=== PATIENT | male | born 1970 | race Caucasian/White ===

== ENCOUNTER 2017-02-04 01:55 | Emergency (ER) | payer SELFPAY ==
[2017-02-04] MEDS ORDERED: Sodium Chloride 0.9% 10 ML Syringe FLUSH PRN (02:24)
[2017-02-04] MEDS ORDERED: Sodium Chloride 0.9% 2.5 ML Syringe FLUSH PRN (02:24)
[2017-02-04] MEDS ORDERED: Ondansetron 4 MG/2 ML SDV IVPUSH ONE (02:25)
[2017-02-04] MEDS ORDERED: Sodium Chloride 0.9% 1,000 ML IV ONE (02:25)
[2017-02-04] MEDS ORDERED: HYDROmorphone 2 MG/ML Syringe IVPUSH ONE (02:25)
--- NOTE | 2017-02-04 02:28 | EDM.PDOC ---
ED HPI GENERAL MEDICAL PROBLEM - General Chief Complaint: Abdominal Pain Stated Complaint: ABDOMINAL PAIN Time Seen by Provider: 02/04/17 02:18 - History of Present Illness INITIAL COMMENTS - FREE TEXT/NARRATIVE: HISTORY AND PHYSICAL: History of present illness: The patient is a 46-year-old male who presents with a history of kidney stones many years ago and states that he had sudden onset of left upper left lower abdominal pain as well as lower back pain radiating to his testicle. says he is not intractable vomiting since the pain started and has not taken anything for the pain. He has not had fevers chills chest pain or shortness of breath and denies any trauma to the areas. He denies intent any testicular swelling says the pain is shooting around and radiates down to his testicle. He states he had a normal bowel movement earlier today which was not black or bloody and it is not diarrhea. He ate normally today. The patient also states that he is having burning with urination and he is going more frequently this evening and he feels that he cannot completely get the urine out. He has never had issues with his prostate or bladder. Review of systems: As per history of present illness and below otherwise all systems reviewed and negative. Past medical history: As per history of present illness and as reviewed below otherwise noncontributory. Surgical history: As per history of present illness and as reviewed below otherwise noncontributory. Social history: No reported history of drug or alcohol abuse. Family history: As per history of present illness and as reviewed below otherwise noncontributory. Physical exam: Gen.: Well-developed overweight male who is nontoxic and looks uncomfortable in the room. HEENT: Atraumatic, normocephalic, pupils reactive, negative for conjunctival pallor or scleral icterus, mucous membranes moist, throat clear, neck supple, nontender, trachea midline. Lungs: Clear to auscultation, breath sounds equal bilaterally, chest nontender. Heart: S1S2, regular, negative for clicks, rubs, or JVD. Abdomen: Soft, nondistended, diffusely tender throughout the lower abdomen worse on the left side without involuntary guarding or rebound but there is some voluntary guarding. Bowel sounds are hypoactive. Negative for masses or hepatosplenomegaly. Negative for costovertebral tenderness. Pelvis: Stable nontender. Genitourinary: Testicles are descended bilaterally and is no evidence of any testicular swelling or gross tenderness. Rectal: Deferred. Extremities: Atraumatic, negative for cords or calf pain. Neurovascular unremarkable. Neuro: Awake, alert, oriented. Cranial nerves II through XII unremarkable. Cerebellum unremarkable. Motor and sensory unremarkable throughout. Exam nonfocal. Diagnostics: Bladder scan CBC CMP amylase lipase UA urine culture CT scan of the abdomen and pelvis Therapeutics: IV fluids Dilaudid Zofran fentanyl Bladder scan reveals only 110 mL of urine. Patient states that the dilaudid did not help him so I will give him a dose of fentanyl. He also is having retching and dry heaving despite the Zofran so we will try Reglan and Benadryl. Patient and at bedside are aware of testing results and CAT scan findings. He is currently very comfortable without any pain nausea or vomiting. I told that we will send him home with her cassette Zofran urine strainers and Toradol as well as some Cipro to the bacteria in the urine. We will also send him home with Flomax. I strongly encouraged close follow-up with urology in his clinic and reasons to return to the ED. Impression: Left ureterolithiasis Definitive disposition and diagnosis as appropriate pending reevaluation and review of above. Left Upper Abdomen Pain Score (Numeric/FACES): 10 - Related Data Allergies Allergy/AdvReac Type Severity Reaction Status Date / Time No Known Allergies Allergy Verified 02/04/17 02:15 Home Meds: Home Meds . [No Known Home Meds] 02/04/17 [History] Past Medical History Gastrointestinal History: Reports: None Genitourinary History: Reports: Renal Calculus Musculoskeletal History: Reports: None - Past Surgical History GI Surgical History: Reports: Cholecystectomy Musculoskeletal Surgical History: Reports: Knee Replacement, Shoulder Surgery Social & Family History - Family History Family Medical History: Noncontributory - Tobacco Use Smoking Status *Q: Never Smoker Second Hand Smoke Exposure: No - Caffeine Use Caffeine Use: Reports: None - Recreational Drug Use Recreational Drug Use: No ED ROS GENERAL - Review of Systems Review Of Systems: ROS reveals no pertinent complaints other than HPI. ED EXAM, GENERAL - Physical Exam Exam: See Below (see dictation) Course - Vital Signs Last Recorded V/S: Last Vital Signs Temp 36.7 C 02/04/17 03:43 Pulse 69 02/04/17 03:43 Resp 16 02/04/17 03:43 BP 129/80 02/04/17 03:43 Pulse Ox 95 02/04/17 03:43 - Orders/Labs/Meds Orders: Active Orders 24 hr Category Date Time Status Abdomen Pelvis wo Cont [CT] Stat Exams 02/04/17 02:24 Taken CULTURE URINE [RM] Stat Lab 02/04/17 02:15 Received Sodium Chloride 0.9% [Saline Flush] Med 02/04/17 02:24 Active 10 ml FLUSH ASDIRECTED PRN Sodium Chloride 0.9% [Saline Flush] Med 02/04/17 02:24 Active 2.5 ml FLUSH ASDIRECTED PRN Saline Lock Insert [OM.PC] Stat Oth 02/04/17 02:23 Ordered Medication Orders Sodium Chloride (Saline Flush) 10 ml FLUSH ASDIRECTED PRN PRN Reason: Keep Vein Open Sodium Chloride (Saline Flush) 2.5 ml FLUSH ASDIRECTED PRN PRN Reason: Keep Vein Open Labs: Laboratory Tests 02/04/17 02/04/17 02/04/17 Range/Units 02:15 02:45 02:45 WBC 13.55 H (4.0-11.0) K/uL RBC 5.23 (4.50-5.90) M/uL Hgb 14.7 (13.0-17.0) g/dL Hct 43.6 (38.0-50.0) % MCV 83.4 (80.0-98.0) fL MCH 28.1 (27.0-32.0) pg MCHC 33.7 (31.0-37.0) g/dL RDW Std Deviation 38.5 (28.0-62.0) fl RDW Coeff of Telly 13 (11.0-15.0) % Plt Count 216 (150-400) K/uL MPV 10.60 (7.40-12.00) fL Neut % (Auto) 85.7 H (48.0-80.0) % Lymph % (Auto) 8.4 L (16.0-40.0) % Love % (Auto) 5.7 (0.0-15.0) % Eos % (Auto) 0.1 (0.0-7.0) % Baso % (Auto) 0.1 (0.0-1.5) % Neut # (Auto) 11.6 H (1.4-5.7) K/uL Lymph # (Auto) 1.1 (0.6-2.4) K/uL Love # (Auto) 0.8 (0.0-0.8) K/uL Eos # (Auto) 0.0 (0.0-0.7) K/uL Baso # (Auto) 0.0 (0.0-0.1) K/uL Nucleated RBC % 0.0 /100WBC Nucleated RBCs # 0 K/uL Sodium 143 (136-146) mmol/L Potassium 3.3 L (3.5-5.1) mmol/L Chloride 105 (98-110) mmol/L Carbon Dioxide 26 (21-31) mmol/L BUN 19 (6.0-23.0) mg/dL Creatinine 1.7 H (0.6-1.5) mg/dL Est Cr Clr Drug Dosing 58.44 mL/min Estimated GFR (MDRD) 43.8 ml/min Glucose 128 H (60-110) mg/dL Calcium 10.2 (8.8-10.8) mg/dL Total Bilirubin 0.7 (0.1-1.5) mg/dL AST 20 (5-40) IU/L ALT 25 (8-54) IU/L Alkaline Phosphatase 81 (40-150) Total Protein 8.0 (6.0-8.0) g/dL Albumin 4.7 (3.5-5.0) g/dL Globulin 3.3 (2.0-3.5) g/dL Albumin/Globulin Ratio 1.4 (1.3-2.8) Amylase 46 (10-90) U/L Lipase 31 (7-80) U/L Urine Color YELLOW Urine Appearance CLEAR Urine pH 8.5 H (5.0-8.0) Ur Specific [place] 1.015 (1.001-1.035) Urine Protein NEGATIVE (NEGATIVE) mg/dL Urine Glucose (UA) NEGATIVE (NEGATIVE) mg/dL Urine Ketones 15 H (NEGATIVE) mg/dL Urine Occult Blood NEGATIVE (NEGATIVE) Urine Nitrite NEGATIVE (NEGATIVE) Urine Bilirubin NEGATIVE (NEGATIVE) Urine Urobilinogen 0.2 (<2.0) EU/dL Ur Leukocyte Esterase NEGATIVE (NEGATIVE) Urine RBC 0-1 (0-2/HPF) Urine WBC 0-1 (0-5/HPF) Ur Epithelial Cells OCCASIONAL (NONE-FEW) Urine Bacteria 1+ H (NEGATIVE) Meds: Medications Generic Name Dose Route Start Last Admin Trade Name Jeermy PRN Reason Stop Dose Admin Sodium Chloride 10 ml 02/04/17 02:24 Saline Flush FLUSH ASDIRECTED PRN Keep Vein Open Sodium Chloride 2.5 ml 02/04/17 02:24 Saline Flush FLUSH ASDIRECTED PRN Keep Vein Open Discontinued Medications Generic Name Dose Route Start Last Admin Trade Name Jeremy PRN Reason Stop Dose Admin Diphenhydramine HCl 50 mg 02/04/17 03:08 02/04/17 03:17 Benadryl IVPUSH 02/04/17 03:09 50 mg ONETIME ONE Administration Fentanyl 100 mcg 02/04/17 03:07 Sublimaze IVPUSH 02/04/17 03:13 Q5M PRN Pain Hydromorphone HCl 1 mg 02/04/17 02:25 02/04/17 02:37 Dilaudid IVPUSH 02/04/17 02:26 1 mg ONETIME ONE Administration Sodium Chloride 1,000 mls @ 999 mls/hr 02/04/17 02:25 02/04/17 02:36 Normal Saline IV 02/04/17 03:25 999 mls/hr STAT ONE Administration Ketorolac Tromethamine 30 mg 02/04/17 03:08 02/04/17 03:19 Toradol IVPUSH 02/04/17 03:09 30 mg ONETIME ONE Administration Metoclopramide HCl 10 mg 02/04/17 03:08 02/04/17 03:14 Reglan IV 02/04/17 03:09 10 mg ONETIME ONE Administration Ondansetron HCl 4 mg 02/04/17 02:25 02/04/17 02:36 Zofran IVPUSH 02/04/17 02:26 4 mg ONETIME ONE Administration Departure - Departure Time of Disposition: 04:13 Disposition: Home, Self-Care 01 Condition: Good Clinical Impression: Ureterolithiasis - Discharge Information Forms: ED Department Discharge Additional Instructions: The following information is given to patients seen in the emergency department who are being discharged to home. This information is to outline your options for follow-up care. We provide all patients seen in our emergency department with a follow-up referral. The need for follow-up, as well as the timing and circumstances, are variable depending upon the specifics of your emergency department visit. If you don't have a primary care physician on staff, we will provide you with a referral. We always advise you to contact your personal physician following an emergency department visit to inform them of the circumstance of the visit and for follow-up with them and/or the need for any referrals to a consulting specialist. The emergency department will also refer you to a specialist when appropriate. This referral assures that you have the opportunity for followup care with a specialist. All of these measure are taken in an effort to provide you with optimal care, which includes your followup. Under all circumstances we always encourage you to contact your private physician who remains a resource for coordinating your care. When calling for followup care, please make the office aware that this follow-up is from your recent emergency room visit. If for any reason you are refused follow-up, please contact the [facility] emergency department at and ask to speak to the emergency department charge nurse. [facility] Primary care- Internal Medicine and Family Prctice [address] [place] [id number] [facility] Specialty Care-Urology [address] [place] [id number] Please push hydration and use Zofran for nausea and vomiting, Percocet or Toradol for the pain, and Flomax daily. Please also use the Cipro you have been given tonight and take that until it is finished. Strain all urine. Please call and follow-up with our urologist in the next several days and return to ER as needed and as we discussed. - My Orders Last 24 Hours: My Active Orders 02/04/17 02:15 CULTURE URINE [RM] Stat 02/04/17 02:23 Saline Lock Insert [OM.PC] Stat 02/04/17 02:24 Abdomen Pelvis wo Cont [CT] Stat Sodium Chloride 0.9% [Saline Flush] 10 ml FLUSH ASDIRECTED PRN Sodium Chloride 0.9% [Saline Flush] 2.5 ml FLUSH ASDIRECTED PRN - Assessment/Plan Last 24 Hours: My Active Orders 02/04/17 02:15 CULTURE URINE [RM] Stat 02/04/17 02:23 Saline Lock Insert [OM.PC] Stat 02/04/17 02:24 Abdomen Pelvis wo Cont [CT] Stat Sodium Chloride 0.9% [Saline Flush] 10 ml FLUSH ASDIRECTED PRN Sodium Chloride 0.9% [Saline Flush] 2.5 ml FLUSH ASDIRECTED PRN
[2017-02-04] MEDS ORDERED: fentaNYL 100 MCG/2 ML SDV IVPUSH PRN (03:07)
[2017-02-04] MEDS ORDERED: diphenhydrAMINE 50 MG/ML SDV IVPUSH ONE (03:08)
[2017-02-04] MEDS ORDERED: Ketorolac 30 MG/ML SDV IVPUSH ONE (03:08)
[2017-02-04] MEDS ORDERED: Metoclopramide 10 MG/2 ML SDV IV ONE (03:08)
[2017-02-04 04:58] VITALS: BP 115/60
--- NOTE | 2017-02-05 13:41 | CT ---
EXAM DATE: 02/04/17 PATIENT'S AGE: 46 Patient: DOLORES DIXON Facility: [place], [place] Site . Site : 1970 Study: CT Abdomen/Pelvis [id number]/30/2017 3:45:11 AM Ordering Physician: Darien Rader Final Report: INDICATION: Left-sided pain. TECHNIQUE: CT abdomen and pelvis without contrast. COMPARISON: None. FINDINGS: Lower chest: Unremarkable. Liver: Unremarkable. Spleen: Unremarkable. Pancreas: Unremarkable. Gallbladder and bile ducts: Cholecystectomy. Kidneys: 2 mm stone at the left ureterovesicular junction causes mild hydroureteronephrosis and perinephric stranding. Additional bilateral nonobstructing renal stones. Adrenal glands: Calcification of the right adrenal gland likely represents sequela of prior insult. GI tract: Unremarkable. Appendix is normal. No free air or free fluid. Vascular structures: Unremarkable. Lymph nodes: Unremarkable. Pelvic Organs: Unremarkable. Bones: Mild degenerative changes. IMPRESSION: 2 mm stone at the left ureterovesicular junction causing mild hydroureteronephrosis. Bilateral nonobstructing renal stones. Dictated by Montrell Tan MD @ 02/04/2017 3:58:50 AM Dictated by: Montrell Tan MD @ 02/04/2017 03:59:05 (Electronic Signature) Report Signed by Proxy. [facility]
== END 2017-02-04 04:50 | disposition home or self-care (01) ==
LOC: MW.ED 01:55
DX: N13.2 Hydronephrosis with renal and ureteral calculous obstruction (principal); Z90.49 Acquired absence of other specified parts of digestive tract; Z96.659 Presence of unspecified artificial knee joint
CPT/HCPCS: 36415; 74176; 80053; 81001; 82150; 83690; 85025; 87086; 96361; 96374; 96375; 99284; J1170; J1200; J1885; J2405; J2765; J7040; 99283